=== PATIENT | female | born 1980 | race American Indian/Alaskan Native ===

== ENCOUNTER 2018-03-05 13:12 | Outpatient (CLI) | payer BC ==
[~2018-03-05 13:12] MED LIST: NACL ONE
--- NOTE | 2018-03-05 14:48 | Mammography Report ---
Bilateral mammogram and left breast ultrasound: Patient presents with palpable mass in the left breast which is recently decreased in size but warp bleaching vat tender. Routine mammogram images are obtained and compared to her prior examination in September 2014. A marker is placed over the area of concern in the upper-outer left breast. There is a generally symmetric fibroglandular pattern with most of the tissue in the upper-outer quadrants. The remainder the breast pattern is mostly fatty replaced. These findings are not substantially different than seen on prior exam and specifically there is no focal mass related to the marker. Ultrasound of the left breast in the area of concern only demonstrates a small circumscribed hypodensity in the area of concern where the patient feels her tenderness. This is located 11 cm from the nipple at approximately 2:30 position. Slightly from this area are 2 adjacent anechoic circumscribed masses consistent with cysts. The larger of the 2 measures 17 mm and the smaller measures 8 mm. Mild distal enhancement is noted in the smaller lesion. No solid masses noted. CAD used. Impression: 1. Stable breast pattern with no suspicious findings on mammogram. 2. Palpable findings and tenderness related to left breast cysts. Recommendation: Clinical followup. Annual mammogram followup unless otherwise indicated. The findings and recommendations have been discussed with the patient. BI-RADS CATEGORY: 2 = Benign ACR BI-RADS MAMMOGRAPHIC CODES: 0 = Needs additional imaging evaluation; 1 = Negative; 2 = Benign; 3 = Probably benign; 4 = Suspicious; 5 = Malignant; 6 = Known biopsy-proven malignancy COMMENT: 1. Dense breast tissue, i.e., adenosis, fibrocystic changes, etc., may obscure an underlying neoplasm. 2. Approximately 10% of cancers are not detected with mammography. 3. A negative mammography report should not delay biopsy if a clinically suspicious mass is present.
== END 2018-03-05 13:13 | disposition home or self-care (01) ==
LOC: MAMMO 13:12
PROVIDERS: ATTEND Family Medicine Adult Medicine
DX: N63.20 Unspecified lump in the left breast, unspecified quadrant (principal); R92.8 Other abnormal and inconclusive findings on diagnostic imaging of breast
CPT/HCPCS: 77066

== ENCOUNTER 2019-02-27 10:31 | Outpatient (CLI) | payer BC ==
--- NOTE | 2019-02-27 11:29 | Mammography Report ---
BILATERAL MAMMOGRAM: FINDINGS: The breast tissue is heterogeneously dense, which could obscure detection of small masses (approximately 50%-75% glandular). No mass, distortion, suspicious calcification, or skin change is seen. No interval change when compared to prior exam in February 2018. CAD was utilized. IMPRESSION: Negative mammogram. There is no mammographic evidence of malignancy. RECOMMENDATION: Follow-up per ACS guidelines. BI-RADS CATEGORY: 1 = Negative ACR BI-RADS MAMMOGRAPHIC CODES: 0 = Needs additional imaging evaluation; 1 = Negative; 2 = Benign; 3 = Probably benign; 4 = Suspicious; 5 = Malignant; 6 = Known biopsy-proven malignancy COMMENT: 1. Dense breast tissue, i.e., adenosis, fibrocystic changes, etc., may obscure an underlying neoplasm. 2. Approximately 10% of cancers are not detected with mammography. 3. A negative mammography report should not delay biopsy if a clinically suspicious mass is present. COMMENT: Patient follow-up letters are generated in [facility] [employer].
== END 2019-02-27 10:32 | disposition home or self-care (01) ==
LOC: SPVWC 10:31
PROVIDERS: ATTEND Family Medicine Adult Medicine
DX: Z12.31 Encounter for screening mammogram for malignant neoplasm of breast (principal)
CPT/HCPCS: 77067

== ENCOUNTER 2020-06-29 15:51 | Outpatient (CLI) | payer BC ==
--- NOTE | 2020-06-29 17:24 | Mammography Report ---
DIGITAL SCREENING MAMMOGRAM WITH CAD, 06/29/2020 INDICATION: Routine screening mammography. TECHNIQUE: Digital bilateral 2D mammography was obtained in the craniocaudal and mediolateral obliq ue projections. This examination was interpreted with the benefit of Computer-Aided Detection analysi s. COMPARISON: 02/27/2019. FINDINGS: Breast Density: The breasts are heterogeneously dense, which may obscure small masses. There is no evidence of dominant mass, suspicious calcifications or architectural distortion in eithe r breast. IMPRESSION: Follow up recommendation: Routine yearly BI-RADS Category 1: Negative. A "normal" or negative report should not discourage follow up or biopsy of a clinically significant f inding. A written summary of these findings will be mailed to the patient. The patient will be entered into a mammography reporting system which will generate a reminder letter for the patient's next appointmen t at the appropriate interval. The [employer] recommends yearly mammograms starting at age 40 and continuing as l john as a woman is in good health. Breast MRI is recommended for women with an approximate 20-25% or greater lifetime risk of breast cancer, including women with a strong family history of breast or ova emile cancer or who have been treated for Hodgkin's disease. Signer Name: Lenny Ortega MD Signed: 06/29/2020 5:20 PM Workstation Name: [id number]
== END 2020-06-29 15:52 | disposition home or self-care (01) ==
LOC: SPVWC 15:51
PROVIDERS: ATTEND Obstetrics & Gynecology
DX: Z12.31 Encounter for screening mammogram for malignant neoplasm of breast (principal)
CPT/HCPCS: 77067

== ENCOUNTER 2021-07-01 10:31 | Outpatient (CLI) | payer BC ==
--- NOTE | 2021-07-04 08:24 | Mammography Report ---
DIGITAL SCREENING MAMMOGRAM WITH CAD, 07/01/2021 CLINICAL INFORMATION / INDICATION: Routine screening mammography. TECHNIQUE: Digital bilateral 2D mammography was obtained in the craniocaudal and mediolateral obliqu e projections. This examination was interpreted with the benefit of Computer-Aided Detection analysis . COMPARISON: Prior mammograms 06/29/2020 and 02/27/2019 FINDINGS: Breast Density: The breasts are heterogeneously dense, which may obscure small masses. No dominant mass, suspicious calcifications, or architectural distortion in either breast. There has been no significant change compared with the prior examinations. IMPRESSION: No mammographic evidence of malignancy. Follow up recommendation: Routine yearly BI-RADS Category 1: Negative. A "normal" or negative report should not discourage follow up or biopsy of a clinically significant f inding. A written summary of these findings will be mailed to the patient. The patient will be entered into a mammography reporting system which will generate a reminder letter for the patient's next appointmen t at the appropriate interval. The [employer] recommends yearly mammograms starting at age 40 and continuing as l john as a woman is in good health. Breast MRI is recommended for women with an approximate 20-25% or greater lifetime risk of breast cancer, including women with a strong family history of breast or ova emile cancer or who have been treated for Hodgkin's disease. Signer Name: Sharla Jamison MD Signed: 07/04/2021 8:20 AM Workstation Name: [id number]
== END 2021-07-01 10:32 | disposition home or self-care (01) ==
LOC: SPVWC 10:31
PROVIDERS: ATTEND Obstetrics & Gynecology
DX: Z12.31 Encounter for screening mammogram for malignant neoplasm of breast (principal)
CPT/HCPCS: 77067